=== PATIENT | female | born 1950 | race African-American/Black ===

== ENCOUNTER 2022-11-17 13:11 | Inpatient (IN) | payer OTHER ==
[2022-11-17] MEDS ORDERED: ACETAMINOPHEN 1000 MG/100 ML BAG IVPB ONE (15:24)
[2022-11-17] MEDS ORDERED: ACETAMINOPHEN INJECTION 100 ML IVPB ONE (16:09)
[2022-11-17 16:32] LABS: BASO % 0.1 % (0-2.0); HEMATOCRIT 34.2 % (32.4-45.2); HEMOGLOBIN 11.4 GM/dL (10.7-15.3); LYMPH % 18.9 % (8-40); MCH 23.4 pg (25.7-33.7); MCHC 33.4 g/dl (32.0-36.0); MEAN CELL VOLUME 70.2 fl (80-96); MEAN PLT VOLUME 7.7 fl (7.5-11.1); MONO % 8.1 % (3.8-10.2); NEUT % 72.9 % (42.8-82.8); PLATELET COUNT 231 10^3/uL (134-434); RBC 4.87 M/mm3 (3.60-5.2); RDW 16.5 % (11.6-15.6); WHITE BLOOD COUNT 6.7 K/mm3 (4.0-10.0)
[2022-11-17 16:40] LABS: INR 1.17 (0.83-1.09); PROTHROMBIN TIME (PATIENT) 13.5 SEC (9.7-13.0)
[2022-11-17 16:43] LABS: ACTIVATED PTT 31.6 SECONDS (25.2-36.5)
[2022-11-17 16:46] LABS: VENOUS O2 SATURATION 39.7 % (70-80); VENOUS PCO2 43.1 mmHg (38-52); VENOUS PH 7.29 (7.310-7.410)
[2022-11-17 17:51] LABS: ALBUMIN 3.6 g/dl (3.4-5.0); ALK PHOS 91 U/L (45-117); ANION GAP 9 MMOL/L (8-16); BILIRUBIN,TOTAL 0.7 mg/dL (0.2-1); BLOOD UREA NITROGEN 15.1 mg/dL (7-18); CALCIUM 8.9 mg/dL (8.5-10.1); CHLORIDE 111 mmol/L (98-107); CO2 23 mmol/L (21-32); CREATININE 1.3 mg/dL (0.55-1.3); GLUCOSE,RANDOM 96 mg/dL (74-106); SGOT/AST 19 U/L (15-37); SGPT/ALT 15 U/L (13-61); SODIUM 142 mmol/L (136-145); TOT PROT 7.4 g/dl (6.4-8.2)
[2022-11-17] MEDS ORDERED: SODIUM CHLORIDE 0.9% 500 ML INFUS.BAG IV ONE (18:43)
[2022-11-18] MEDS ORDERED: REMDESIVIR 200 MG in SODIUM CHLORIDE 250 ML IVPB ONE ×3 (01:00→15:38)
[2022-11-18] MEDS ORDERED: LEVOTHYROXINE NA 75 MCG TABLET (FP) ONE (08:15)
[2022-11-18] MEDS: LEVOTHYROXINE NA 75 MCG TABLET (FP) PO SCH (08:33)
[2022-11-18] MEDS ORDERED: ENOXAPARIN NA (PORCINE) 40 MG/0.4 ML DISP.SYRIN SQ ONE (08:44)
[2022-11-18] MEDS: ENOXAPARIN NA (PORCINE) 40 MG/0.4 ML DISP.SYRIN SQ SCH (09:16)
[2022-11-18] MEDS: MEMANTINE HCL 10 MG TABLET (FP) PO SCH (09:17)
[2022-11-18 09:23] LABS: BASO % 0.1 % (0-2.0); EOS % 0.1 % (0-4.5); HEMATOCRIT 34.2 % (32.4-45.2); HEMOGLOBIN 10.8 GM/dL (10.7-15.3); LYMPH % 27.6 % (8-40); MCH 22.8 pg (25.7-33.7); MCHC 31.6 g/dl (32.0-36.0); MEAN PLT VOLUME 7.7 fl (7.5-11.1); NEUT % 62.2 % (42.8-82.8); PLATELET COUNT 207 10^3/uL (134-434); RBC 4.75 M/mm3 (3.60-5.2); RDW 16.5 % (11.6-15.6); WHITE BLOOD COUNT 6.4 K/mm3 (4.0-10.0)
[2022-11-18 09:26] LABS: EPI CELLS 15 /uL (0-25.1); HYALINE CASTS 1 /uL (0-3.1); PH,URINE 5.5 (5.0-8.0); URINE APPEARANCE CLEAR; URINE BACTERIA 186 /uL (0-1359); URINE BILIRUBIN NEGATIVE (NEGATIVE); URINE COLOR YELLOW; URINE GLUCOSE (UA) NEGATIVE (NEGATIVE); URINE KETONE TRACE (NEGATIVE); URINE LEUK ESTERASE 1+ (NEGATIVE); URINE NITRITE NEGATIVE (NEGATIVE); URINE PROTEIN NEGATIVE (NEGATIVE); URINE RBC 23 /uL (0-23.9); URINE UROBILINOGEN 0.2 mg/dL (0.2-1.0); URINE WBC 45 /uL (0-25.8)
[2022-11-18 09:33] LABS: POTASSIUM 5.4 mmol/L (3.5-5.1)
[2022-11-18 09:37] LABS: ALBUMIN 3.2 g/dl (3.4-5.0); BLOOD UREA NITROGEN 13.1 mg/dL (7-18); MAGNESIUM 1.9 mg/dL (1.8-2.4)
[2022-11-18 09:40] LABS: PHOSPHOROUS 2.2 mg/dL (2.5-4.9)
[2022-11-18 10:14] LABS: LACTIC ACID 2.3 mmol/L (0.4-2.0)
[2022-11-18] MEDS ORDERED: ASPIRIN 81 MG CHEWABLE TABLETS ONE (11:45)
[2022-11-18] MEDS ORDERED: DONEPEZIL HCL 5 MG TABLET (FP) ONE (11:45)
[2022-11-18] MEDS: ASPIRIN 81 MG CHEWABLE TABLETS PO SCH (11:51)
[2022-11-18] MEDS: DONEPEZIL HCL 5 MG TABLET (FP) PO SCH ×2 (11:51→22:28)
[2022-11-18] MEDS: LACTATED RINGERS SOLUTION 1,000 ML/1,000 ML INFUS.BAG IV SCH (11:51)
[2022-11-18] MEDS ORDERED: GABAPENTIN 100 MG CAPSULE PO SCH (14:00)
[2022-11-18] MEDS: ATORVASTATIN CA 10 MG TABLET (FP) PO SCH (22:28)
[2022-11-18] MEDS: FAMOTIDINE 20 MG TABLET PO SCH (22:29)
[2022-11-19 00:35] LABS: POTASSIUM 3.6 mmol/L (3.5-5.1)
[2022-11-19] MEDS: LEVOTHYROXINE NA 75 MCG TABLET (FP) PO SCH (06:47)
[2022-11-19 08:20] LABS: CHOLESTEROL 117 mg/dL (50-200)
[2022-11-19 08:21] LABS: LDL CHOLESTEROL (ONLY SJRH) 60 mg/dL (5-100)
[2022-11-19 08:23] LABS: HDL CHOLESTEROL 52 mg/dL (40-60)
[2022-11-19] MEDS: ENOXAPARIN NA (PORCINE) 40 MG/0.4 ML DISP.SYRIN SQ SCH (09:34)
[2022-11-19] MEDS: DONEPEZIL HCL 5 MG TABLET (FP) PO SCH ×2 (09:34→21:37)
[2022-11-19] MEDS: amLODIPine BESYLATE 2.5 MG TABLET (FP) PO SCH (09:35)
[2022-11-19] MEDS: ASPIRIN 81 MG CHEWABLE TABLETS PO SCH (09:35)
[2022-11-19] MEDS: MEMANTINE HCL 10 MG TABLET (FP) PO SCH (09:35)
[2022-11-19] MEDS: REMDESIVIR 100 MG in SODIUM CHLORIDE 250 ML IVPB SCH (09:36)
[2022-11-19] MEDS: LACTATED RINGERS SOLUTION 1,000 ML/1,000 ML INFUS.BAG IV SCH (12:46)
[2022-11-19] MEDS: ATORVASTATIN CA 10 MG TABLET (FP) PO SCH (21:37)
[2022-11-19] MEDS: FAMOTIDINE 20 MG TABLET PO SCH (21:37)
[2022-11-20] MEDS: LEVOTHYROXINE NA 75 MCG TABLET (FP) PO SCH (06:47)
[2022-11-20] MEDS: REMDESIVIR 100 MG in SODIUM CHLORIDE 250 ML IVPB SCH (10:07)
[2022-11-20] MEDS: ENOXAPARIN NA (PORCINE) 40 MG/0.4 ML DISP.SYRIN SQ SCH (10:08)
[2022-11-20] MEDS: MEMANTINE HCL 10 MG TABLET (FP) PO SCH (10:08)
[2022-11-20] MEDS: ASPIRIN 81 MG CHEWABLE TABLETS PO SCH (10:08)
[2022-11-20] MEDS: amLODIPine BESYLATE 2.5 MG TABLET (FP) PO SCH (10:08)
[2022-11-20] MEDS: DONEPEZIL HCL 5 MG TABLET (FP) PO SCH ×2 (10:08→21:43)
[2022-11-20] MEDS ORDERED: POTASSIUM PHOSPHATE 15 MM in SODIUM CHLORIDE 250 ML IVPB ONE (15:00)
[2022-11-20 15:28] LABS: HEMATOCRIT 28.5 % (32.4-45.2); HEMOGLOBIN 9.3 GM/dL (10.7-15.3); MCH 22.7 pg (25.7-33.7); MCHC 32.6 g/dl (32.0-36.0); MEAN CELL VOLUME 69.7 fl (80-96); MEAN PLT VOLUME 7.8 fl (7.5-11.1); PLATELET COUNT 212 10^3/uL (134-434); RBC 4.09 M/mm3 (3.60-5.2); RDW 16.1 % (11.6-15.6); WHITE BLOOD COUNT 4.6 K/mm3 (4.0-10.0)
[2022-11-20 16:08] LABS: POTASSIUM 3.6 mmol/L (3.5-5.1)
[2022-11-20 16:11] LABS: CALCIUM 8.5 mg/dL (8.5-10.1)
[2022-11-20 16:12] LABS: ALBUMIN 2.6 g/dl (3.4-5.0); BLOOD UREA NITROGEN 16.1 mg/dL (7-18)
[2022-11-20 16:15] LABS: CREATININE 0.9 mg/dL (0.55-1.3)
[2022-11-20 16:16] LABS: TOT PROT 5.6 g/dl (6.4-8.2)
[2022-11-20 16:17] LABS: BILIRUBIN,TOTAL 0.3 mg/dL (0.2-1)
[2022-11-20] MEDS ORDERED: ACETAMINOPHEN/CAFFEINE/BUTALBITAL 1 TAB PO PRN (16:47)
[2022-11-20] MEDS ORDERED: ACETAMINOPHEN/CAFFEINE/BUTALBITAL 1 TAB PO ONE (17:50)
[2022-11-20] MEDS: TOPIRAMATE 25 MG TABLET PO SCH (21:42)
[2022-11-20] MEDS: FAMOTIDINE 20 MG TABLET PO SCH (21:42)
[2022-11-20] MEDS: RAMIPRIL 5 MG CAPSULE PO SCH (21:42)
[2022-11-20] MEDS: ATORVASTATIN CA 10 MG TABLET (FP) PO SCH (21:42)
[2022-11-21] MEDS: LEVOTHYROXINE NA 75 MCG TABLET (FP) PO SCH (06:06)
[2022-11-21 08:17] LABS: HEMATOCRIT 29.8 % (32.4-45.2); HEMOGLOBIN 9.9 GM/dL (10.7-15.3); MCH 23.2 pg (25.7-33.7); MCHC 33.3 g/dl (32.0-36.0); MEAN CELL VOLUME 69.7 fl (80-96); MEAN PLT VOLUME 7.5 fl (7.5-11.1); PLATELET COUNT 218 10^3/uL (134-434); RBC 4.28 M/mm3 (3.60-5.2); RDW 15.8 % (11.6-15.6); WHITE BLOOD COUNT 5.3 K/mm3 (4.0-10.0)
[2022-11-21 08:35] LABS: POTASSIUM 3.7 mmol/L (3.5-5.1)
[2022-11-21 08:39] LABS: ALBUMIN 2.7 g/dl (3.4-5.0); BLOOD UREA NITROGEN 15.7 mg/dL (7-18); CALCIUM 8.4 mg/dL (8.5-10.1); MAGNESIUM 1.7 mg/dL (1.8-2.4)
[2022-11-21 08:41] LABS: CREATININE 0.9 mg/dL (0.55-1.3); PHOSPHOROUS 2.5 mg/dL (2.5-4.9)
[2022-11-21 08:43] LABS: BILIRUBIN,TOTAL 0.5 mg/dL (0.2-1); TOT PROT 5.7 g/dl (6.4-8.2)
[2022-11-21] MEDS: TOPIRAMATE 25 MG TABLET PO SCH ×2 (09:35→21:19)
[2022-11-21] MEDS: MEMANTINE HCL 10 MG TABLET (FP) PO SCH (09:35)
[2022-11-21] MEDS: ASPIRIN 81 MG CHEWABLE TABLETS PO SCH (09:35)
[2022-11-21] MEDS: ENOXAPARIN NA (PORCINE) 40 MG/0.4 ML DISP.SYRIN SQ SCH (09:35)
[2022-11-21] MEDS: DONEPEZIL HCL 5 MG TABLET (FP) PO SCH ×2 (09:35→21:19)
[2022-11-21] MEDS ORDERED: MAGNESIUM SULF 50% (8.12 MEQ/2 ML-1 GM VIAL) IVPB ONE (10:00)
[2022-11-21] MEDS ORDERED: MAGNESIUM OXIDE 400 MG TABLET (FP) PO ONE (16:25)
[2022-11-21] MEDS: ATORVASTATIN CA 10 MG TABLET (FP) PO SCH (21:19)
[2022-11-21] MEDS: FAMOTIDINE 20 MG TABLET PO SCH (21:19)
[2022-11-21] MEDS: RAMIPRIL 5 MG CAPSULE PO SCH (21:19)
[2022-11-21 21:48] VITALS: RESP 18
[2022-11-22] MEDS: LEVOTHYROXINE NA 75 MCG TABLET (FP) PO SCH (06:22)
[2022-11-22 08:18] LABS: HEMATOCRIT 32.3 % (32.4-45.2); HEMOGLOBIN 10.3 GM/dL (10.7-15.3); MCH 22.4 pg (25.7-33.7); MEAN CELL VOLUME 69.9 fl (80-96); MEAN PLT VOLUME 7.7 fl (7.5-11.1); PLATELET COUNT 237 10^3/uL (134-434); RBC 4.62 M/mm3 (3.60-5.2); RDW 15.8 % (11.6-15.6); WHITE BLOOD COUNT 4.9 K/mm3 (4.0-10.0)
[2022-11-22 08:37] LABS: POTASSIUM 3.9 mmol/L (3.5-5.1)
[2022-11-22 08:44] LABS: CALCIUM 8.7 mg/dL (8.5-10.1)
[2022-11-22 08:45] LABS: ALBUMIN 2.9 g/dl (3.4-5.0); MAGNESIUM 2.3 mg/dL (1.8-2.4)
[2022-11-22 08:46] LABS: BLOOD UREA NITROGEN 15.4 mg/dL (7-18); CREATININE 0.9 mg/dL (0.55-1.3); PHOSPHOROUS 2.4 mg/dL (2.5-4.9)
[2022-11-22 08:47] LABS: BILIRUBIN,TOTAL 0.7 mg/dL (0.2-1)
[2022-11-22] MEDS: DONEPEZIL HCL 5 MG TABLET (FP) PO SCH ×2 (09:23→21:27)
[2022-11-22] MEDS: TOPIRAMATE 25 MG TABLET PO SCH ×2 (09:23→21:28)
[2022-11-22] MEDS: ASPIRIN 81 MG CHEWABLE TABLETS PO SCH (09:23)
[2022-11-22] MEDS: ENOXAPARIN NA (PORCINE) 40 MG/0.4 ML DISP.SYRIN SQ SCH (09:23)
[2022-11-22] MEDS: MEMANTINE HCL 10 MG TABLET (FP) PO SCH (09:24)
[2022-11-22] MEDS ORDERED: NAPH,MB-DB/K PH,MBDB POWDER PACKET PO ONE (13:28)
[2022-11-22] MEDS: ATORVASTATIN CA 10 MG TABLET (FP) PO SCH (21:28)
[2022-11-22] MEDS: FAMOTIDINE 20 MG TABLET PO SCH (21:28)
[2022-11-22] MEDS: RAMIPRIL 5 MG CAPSULE PO SCH (21:28)
[2022-11-23] MEDS: LEVOTHYROXINE NA 75 MCG TABLET (FP) PO SCH (07:20)
[2022-11-23 08:52] LABS: BASO % 0.2 % (0-2.0); EOS % 0.8 % (0-4.5); HEMATOCRIT 34.7 % (32.4-45.2); HEMOGLOBIN 11.2 GM/dL (10.7-15.3); LYMPH % 37.4 % (8-40); MCH 22.7 pg (25.7-33.7); MCHC 32.2 g/dl (32.0-36.0); MEAN CELL VOLUME 70.5 fl (80-96); MEAN PLT VOLUME 7.6 fl (7.5-11.1); MONO % 6.7 % (3.8-10.2); NEUT % 54.9 % (42.8-82.8); PLATELET COUNT 251 10^3/uL (134-434); RBC 4.92 M/mm3 (3.60-5.2); RDW 16.3 % (11.6-15.6); WHITE BLOOD COUNT 5.5 K/mm3 (4.0-10.0)
[2022-11-23 09:09] LABS: POTASSIUM 3.8 mmol/L (3.5-5.1)
[2022-11-23 09:12] LABS: CALCIUM 8.7 mg/dL (8.5-10.1)
[2022-11-23 09:13] LABS: ALBUMIN 2.9 g/dl (3.4-5.0); BLOOD UREA NITROGEN 14.4 mg/dL (7-18); MAGNESIUM 2.1 mg/dL (1.8-2.4)
[2022-11-23 09:16] LABS: CREATININE 0.9 mg/dL (0.55-1.3); PHOSPHOROUS 2.4 mg/dL (2.5-4.9)
[2022-11-23 09:17] LABS: TOT PROT 6.3 g/dl (6.4-8.2)
[2022-11-23 09:18] LABS: BILIRUBIN,TOTAL 0.8 mg/dL (0.2-1)
[2022-11-23] MEDS: TOPIRAMATE 25 MG TABLET PO SCH (09:22)
[2022-11-23] MEDS: DONEPEZIL HCL 5 MG TABLET (FP) PO SCH (09:22)
[2022-11-23] MEDS: ENOXAPARIN NA (PORCINE) 40 MG/0.4 ML DISP.SYRIN SQ SCH (09:22)
[2022-11-23] MEDS: MEMANTINE HCL 10 MG TABLET (FP) PO SCH (09:22)
[2022-11-23] MEDS: ASPIRIN 81 MG CHEWABLE TABLETS PO SCH (09:22)
[2022-11-23 15:16] VITALS: BP 106/59; PULSE 73; TEMP 98.2
== END 2022-11-23 16:18 | disposition home health service (06) | DRG 177 ==
LOC: JER 13:11 → JERBED 18:26 → J4S 11-18 13:16 → OBSVTOIN 11-20 09:59
PROVIDERS: ADMIT Internal Medicine; ATTEND Internal Medicine
PROC: XW033E5 Introduction of Remdesivir Anti-infective into Peripheral Vein, Percutaneous Approach, New Technology Group 5 (ICD-10-PCS; principal; 2022-11-18)
DX: U07.1 COVID-19 (principal); I21.A1 Myocardial infarction type 2; E87.20 Acidosis, unspecified; F03.90 Unspecified dementia, unspecified severity, without behavioral disturbance, psychotic disturbance, mood disturbance, and anxiety; I10 Essential (primary) hypertension; E78.5 Hyperlipidemia, unspecified; E03.9 Hypothyroidism, unspecified; E87.5 Hyperkalemia; I44.1 Atrioventricular block, second degree; G43.909 Migraine, unspecified, not intractable, without status migrainosus; R74.01 Elevation of levels of liver transaminase levels; R79.89 Other specified abnormal findings of blood chemistry
CPT/HCPCS: 0241U-QW; 36415; 71045-TC-FY; 80053; 80061; 81003; 82550; 82553; 82803; 83605; 83735; 84100; 84132; 84484; 85025; 85027; 85379; 85610; 85730; 86140; 86850; 86900; 86901; 87040; 87086; 93005; 93010; 97116-GP; 97161-GP; 99285-25; C9399; G0378